=== PATIENT | male | born 1960 | race Caucasian/White ===

== ENCOUNTER 2017-06-27 21:08 | Emergency (ER) | payer OTHER ==
[~2017-06-27] VITALS: Ht 170.2 cm; Wt 134.0 kg
[~2017-06-27 21:08] MED LIST: LISI10TA PO; LORT7.5T3 PO; NOVO7030P2 SQ; TAMS0.4C67 PO
[2017-06-27 21:12] VITALS: BP 194/98; PULSE 73; RESP 24; TEMP 103; O2SAT 95
--- NOTE | 2017-06-27 21:52 | PD ---
Data Data Last Documented VS Vital Signs Date Time Temp Pulse Resp B/P Pulse Ox O2 Delivery O2 Flow Rate FiO2 06/27/17 22:30 94 Room Air 06/27/17 21:12 103.0 73 24 194/98 Orders Complete Blood Count With Diff (06/27/17 21:45) Comprehensive Metabolic Panel (06/27/17 21:45) Prothrombin Time / Inr (Pt) (06/27/17 21:45) Act Partial Throm Time (Ptt) (06/27/17 21:45) Blood Culture (06/27/17 21:45) Lipase (06/27/17 21:45) Urinalysis - C+S If Indicated (06/27/17 21:45) Magnesium (Mg) (06/27/17 21:45) Chest, Single Ap (06/27/17 21:45) Iv Access Insert/Monitor (06/27/17 21:45) Ecg Monitoring (06/27/17 21:45) Oximetry (06/27/17 21:45) Lactic Acid Sepsis Protocol (06/27/17 21:45) Ondansetron Inj (Zofran Inj) (06/27/17 22:00) B-Type Natriuretic Peptide (06/27/17 21:48) Us Leg Venous Doppler Bilat (06/27/17 ) Ondansetron Inj (Zofran Inj) (06/27/17 22:15) Morphine Inj (Morphine Inj) (06/27/17 22:15) Acetaminophen (Tylenol) (06/27/17 22:15) Ct Abd/Pel W/O Iv Contrast (06/27/17 ) Ankle, Complete ([id number]) (06/28/17 ) Vancomycin Inj (Vancomycin Inj) (06/28/17 00:45) Piperacil-Tazo 2.25 Gm Premix (Zosyn 2.2 (06/28/17 00:45) Influenzae A/B Antigen (06/28/17 00:44) Labs Laboratory Tests Test 06/27/17 06/27/17 22:20 22:55 White Blood Count 14.8 TH/MM3 Red Blood Count 3.51 MIL/MM3 Hemoglobin 10.7 GM/DL Hematocrit 32.2 % Mean Corpuscular Volume 91.7 FL Mean Corpuscular Hemoglobin 30.5 PG Mean Corpuscular Hemoglobin 33.3 % Concent Red Cell Distribution Width 13.4 % Platelet Count 63 TH/MM3 Mean Platelet Volume 9.9 FL Neutrophils (%) (Auto) 88.8 % Lymphocytes (%) (Auto) 4.4 % Monocytes (%) (Auto) 5.9 % Eosinophils (%) (Auto) 0.6 % Basophils (%) (Auto) 0.3 % Neutrophils # (Auto) 13.1 TH/MM3 Lymphocytes # (Auto) 0.6 TH/MM3 Monocytes # (Auto) 0.9 TH/MM3 Eosinophils # (Auto) 0.1 TH/MM3 Basophils # (Auto) 0.1 TH/MM3 CBC Comment AUTO DIFF Differential Comment AUTO DIFF CONFIRMED Platelet Estimate LOW Platelet Morphology Comment NORMAL Prothrombin Time 10.2 SEC Prothromb Time International 0.9 RATIO Ratio Activated Partial 22.7 SEC Thromboplast Time Sodium Level 138 MEQ/L Potassium Level 5.1 MEQ/L Chloride Level 108 MEQ/L Carbon Dioxide Level 21.0 MEQ/L Anion Gap 9 MEQ/L Blood Urea Nitrogen 42 MG/DL Creatinine 2.96 MG/DL Estimat Glomerular Filtration 22 ML/MIN Rate Random Glucose 121 MG/DL Lactic Acid Level 1.3 mmol/L Calcium Level 8.8 MG/DL Magnesium Level 1.9 MG/DL Total Bilirubin 0.6 MG/DL Aspartate Amino Transf 45 U/L (AST/SGOT) Alanine Aminotransferase 56 U/L (ALT/SGPT) Alkaline Phosphatase 190 U/L B-Type Natriuretic Peptide 150 PG/ML Total Protein 7.5 GM/DL Albumin 2.9 GM/DL Lipase 221 U/L Urine Color YELLOW Urine Turbidity CLEAR Urine pH 6.0 Urine Specific [place] 1.015 Urine Protein 300 mg/dL Urine Glucose (UA) 70 mg/dL Urine Ketones NEG mg/dL Urine Occult Blood TRACE Urine Nitrite NEG Urine Bilirubin NEG Urine Urobilinogen LESS THAN 2.0 MG/DL Urine Leukocyte Esterase NEG Urine RBC 3 /hpf Urine WBC 2 /hpf Urine Hyaline Casts 3 /lpf Urine Mucus FEW /lpf Microscopic Urinalysis Comment CULT NOT INDICATED MDM Supervised Visit with [facility]: Yes Narrative Course Patient care assumed for Benny Zafar PA-C at 2300. Is a 57-year-old male with history of CKD4 but is postponing dialysis as long as possible. The rhythms with fever, left ankle pain, some nausea without vomiting no cough congestion no diarrhea no constipation. The patient was given Tylenol and after fever broke he was feeling much better. Lactic acid normal. His white blood count is elevated to 14,000 but I see no source of bacterial infection in this patient. CAT scan of the abdomen was benign. Chest x-ray negative. Rapid flu negative. UA negative. On my reassessment the patient does have some edema in his legs which is fairly chronic. An ultrasound of his legs was negative. I think the probability for PE is low and certainly not worth the risk to jeopardize his kidney function. I discussed the patient that given his chronic kidney disease and obesity he does give me some pause cigars discharge however he is feeling much better and would like to go home to follow her [facility] care physician. Think this is reasonable at this time. Initial thought was given to broad-spectrum antibiotics but again I do not see a source of infection and do not see the utility of this. I discussed with the patient strict return to ED criteria and symptomatic management of his fever. Diagnosis Primary Impression: Fever Patient Instructions: Fever in Adults (ED), General Instructions Disposition: 01 DISCHARGE HOME Condition: Stable Edin Hsu MD Jun 27, 2017 21:52
[2017-06-27] MEDS ORDERED: ONDANSETRON HCL 4 MG/2 ML VIAL IV PUSH ONE ×2 (22:00→22:15)
--- NOTE | 2017-06-27 22:03 | PD ---
HPI Chief Complaint: GI Complaint Time Seen by Provider: 21:54 Travel History International Travel<30 days: No Contact w/Intl Traveler<30days: No Traveled to known affect area: No History of Present Illness HPI 57- year old male presents to the ED complaining of vomiting and left foot pain. The patient has a medical history of Stage 4 CKD, and Diabetes. The patient reports that the vomiting and the left foot pain started this morning. He reports the pain is mostly in his ankle. He reports that he had an US three weeks ago and was diagnosed with a kidney stone. He is complaining of RUQ and LUQ abdominal pain. 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 The patient is currently on metoprolol and hydralazine for his blood pressure. He reports he is not on any other medications due to his kidney disease. PFSH Past Medical History Diabetes: Yes Genitourinary: Yes Hypertension: Yes Kidney Stones: Yes Past Surgical History Cholecystectomy: Yes Social History Alcohol Use: Yes (QUIT) Tobacco Use: No Substance Use: No Allergies-Medications (Allergen,Severity, Reaction): Coded Allergies: Metformin (Verified Allergy, Severe, 04/18/12) PT STATES HE GOT LACTIC ACIDOSIS FROM TAKING METFORMIN Sulfa (Verified Allergy, Severe, Anaphylaxis, 04/18/12) Reported Meds & Prescriptions Reported Meds & Active Scripts Active Reported Hydralazine HCl 25 Mg Tablet 25 Mg PO TID Novolin 70-30 Inj (Insulin Human Isoph/Insulin Regular) 1,000 Unit/10 Ml Vial 1 Units SQ Metoprolol Tartrate 100 Mg Tab 100 Mg PO DAILY Review of Systems General / Constitutional: Positive: Fever, No: Chills, Weight Gain, Weight Loss, Other Eyes: No: Diploplia, Blurred Vision, Photophobia, Drainage, Redness, Foreign Body Sensation, Pain, Tearing, Blind Spots, Visual changes, Blindness, Other HENT: No: Headaches, Vertigo, Lightheadedness, Sore Throat, Rhinitis, Rhinorrhea, Congestion, Nosebleed, Neck Stiffness, Neck Pain, Masses, Gingival Bleeding, Dental Difficulties, Ear Discharge, Earache, Other Cardiovascular: No: Chest Pain or Discomfort, Palpitations, Irregular Rhythm, Tachycardia, Diaphoresis, Syncope, Dyspnea on exertion, Varicosities, Edema, Cyanosis, Varicosities, Phlebitis, Claudication, Other Respiratory: No: Cough, Shortness of Breath, Wheezing, Sneezing, Orthopnea, Hemoptysis, Stridor, Night Sweats, Pleuritic Pain, Other Gastrointestinal: Positive: Vomiting, Abdominal Pain (LUQ and RUQ), No: Nausea , Diarrhea, Hematemesis, Hematochezia, Constipation, Changes in Bowel Habits, Indigestion, Dysphagia, Loss of Appetite, Other Genitourinary: No: Urgency, Frequency, Dysuria, Nocturia, Hematuria, Decreased Urinary Output, Oliguria, Hesitancy, Dribbling, Incontinence, Pelvic Pain, Flank Pain, Dyspareunia, Discharge, Dysmenorrhea, Menorrhagia, Metorrhagia, Vaginal Bleeding, Other Musculoskeletal: Positive: Myalgias, Edema (bilateral lower extremities), Pain (left foot pain, worse in ankle), No: Arthralgias, Limited ROM, Weakness, Cramping, Atrophy, Other Skin: No Rash, No Itching, No Dryness, No Lumps, No Hives, No Change in Pigmentation, No Change in nails, No Alopecia, No Lesions, No Breast Lumps, No Breast Tenderness, No Breast Swelling, No Other Neurologic: No: Weakness, Dizziness, Syncope, Focal Abnormalities, Coordination Problem, Tremor, Ataxia, Headache, Change in Mentation, Slurred Speech, Paresthesia, Incontinence, Seizures, Sensory Disturbance, Other Psychiatric: No: Anxiety, Depression, Suicidal Ideations, Disorder of Thought, Mood Disorder, Substance Abuse, Homicidal Ideation, Other Endocrine: No: Heat Intolerance, Cold Intolerance, Polyuria, Polydipsia, Other Hematologic/Lymphatic: No: Easy Bruising, Lymph Node Enlargement, Other Physical Exam Narrative GENERAL: SKIN: Warm and dry. HEAD: Atraumatic. Normocephalic. EYES: Pupils equal and round. No scleral icterus. No injection or drainage. ENT: No nasal bleeding or discharge. Mucous membranes pink and moist. Tongue is midline, no uvula deviation. NECK: Trachea midline. No JVD. CARDIOVASCULAR: Regular rate and rhythm. No murmurs, S3, S4. RESPIRATORY: No accessory muscle use. Clear to auscultation. Breath sounds equal bilaterally. GASTROINTESTINAL: Mildy distended. Abdomen soft, non-tender. Hepatic and splenic margins not palpable. MUSCULOSKELETAL: Bilateral lower extremities with pitting 3+ pitting edema. Pain to palpation on left ankle. Limited ROM due to pain and swelling in lower extremities. No obvious deformities. NEUROLOGICAL: Awake and alert. No obvious cranial nerve deficits. Motor grossly within normal limits. Five out of 5 muscle strength in the arms and legs. Normal speech. PSYCHIATRIC: Appropriate mood and affect; insight and judgment normal. Data Data Last Documented VS Vital Signs Date Time Temp Pulse Resp B/P Pulse Ox O2 Delivery O2 Flow Rate FiO2 06/27/17 22:30 94 Room Air 06/27/17 21:12 103.0 73 24 194/98 Orders Complete Blood Count With Diff (06/27/17 21:45) Comprehensive Metabolic Panel (06/27/17 21:45) Prothrombin Time / Inr (Pt) (06/27/17 21:45) Act Partial Throm Time (Ptt) (06/27/17 21:45) Blood Culture (06/27/17 21:45) Lipase (06/27/17 21:45) Urinalysis - C+S If Indicated (06/27/17 21:45) Magnesium (Mg) (06/27/17 21:45) Chest, Single Ap (06/27/17 21:45) Iv Access Insert/Monitor (06/27/17 21:45) Ecg Monitoring (06/27/17 21:45) Oximetry (06/27/17 21:45) Lactic Acid Sepsis Protocol (06/27/17 21:45) Ondansetron Inj (Zofran Inj) (06/27/17 22:00) B-Type Natriuretic Peptide (06/27/17 21:48) Us Leg Venous Doppler Bilat (06/27/17 ) Ondansetron Inj (Zofran Inj) (06/27/17 22:15) Morphine Inj (Morphine Inj) (06/27/17 22:15) Acetaminophen (Tylenol) (06/27/17 22:15) Labs Laboratory Tests Test 06/27/17 22:20 White Blood Count 14.8 TH/MM3 Red Blood Count 3.51 MIL/MM3 Hemoglobin 10.7 GM/DL Hematocrit 32.2 % Mean Corpuscular Volume 91.7 FL Mean Corpuscular Hemoglobin 30.5 PG Mean Corpuscular Hemoglobin 33.3 % Concent Red Cell Distribution Width 13.4 % Platelet Count 63 TH/MM3 Mean Platelet Volume 9.9 FL Neutrophils (%) (Auto) 88.8 % Lymphocytes (%) (Auto) 4.4 % Monocytes (%) (Auto) 5.9 % Eosinophils (%) (Auto) 0.6 % Basophils (%) (Auto) 0.3 % Neutrophils # (Auto) 13.1 TH/MM3 Lymphocytes # (Auto) 0.6 TH/MM3 Monocytes # (Auto) 0.9 TH/MM3 Eosinophils # (Auto) 0.1 TH/MM3 Basophils # (Auto) 0.1 TH/MM3 CBC Comment AUTO DIFF Prothrombin Time 10.2 SEC Prothromb Time International 0.9 RATIO Ratio Activated Partial 22.7 SEC Thromboplast Time MDM Medical Decision Making Medical Screen Exam Complete: Yes Emergency Medical Condition: Yes Medical Record Reviewed: Yes Differential Diagnosis Sepsis versus gastroenteritis versus pancreatitis versus nausea and vomiting versus DVT versus cellulitis versus kidney failure Narrative Course 57-year-old male that presents to the ED for evaluation of fever, swelling and nausea and vomiting. Patient was properly examined and was found to have signs and symptoms of unclear etiology. Labs and imaging recommended. Case will be signed out to my attending Dr. Hsu pending dispo and treatment plan. Benny Zafar Jun 27, 2017 22:03
[2017-06-27] MEDS ORDERED: ACETAMINOPHEN 325 MG TAB PO ONE (22:15)
[2017-06-27] MEDS ORDERED: MORPHINE SULFATE 4 MG/ML INJ IV PUSH ONE (22:15)
[2017-06-27 22:30] VITALS: O2SAT 94
[2017-06-27] MEDS ORDERED: METO100T PO (22:36)
[2017-06-27] MEDS ORDERED: HYDR-3799 PO (22:36)
[2017-06-27] MEDS ORDERED: NOVO7030P2 SQ (22:36)
[2017-06-27 22:37] LABS: AUTOMATED NEUTROPHIL # 13.1 TH/MM3 (1.8-7.7); BASOPHIL # 0.1 TH/MM3 (0-0.2); BASOPHIL % 0.3 % (0.0-2.0); EOSINOPHIL # 0.1 TH/MM3 (0-0.4); EOSINOPHIL % 0.6 % (0.0-4.0); HEMATOCRIT 32.2 % (39.0-51.0); HEMO FLAGS AUTO DIFF; LYMPH % 4.4 % (9.0-44.0); LYMPHOCYTE # 0.6 TH/MM3 (1.0-4.8); MEAN CELL VOLUME 91.7 FL (80.0-100.0); MEAN CORPUSCULAR HEMOGLOBIN 30.5 PG (27.0-34.0); MEAN CORPUSCULAR HGB CONC 33.3 % (32.0-36.0); MONO % 5.9 % (0.0-8.0); NEUT % 88.8 % (16.0-70.0); PLATELET COUNT 63 TH/MM3 (150-450); RED BLOOD COUNT 3.51 MIL/MM3 (4.50-5.90); RED CELL DISTRIBUTION WIDTH 13.4 % (11.6-17.2); WHITE BLOOD COUNT 14.8 TH/MM3 (4.0-11.0)
--- NOTE | 2017-06-27 22:41 | RADRPT ---
EXAM DATE/TIME: 06/27/2017 21:47 [facility] COMPARISON: No previous studies available for comparison. INDICATIONS : Chest pain and fever. MEDICAL HISTORY : Hypertension. Diabetes mellitus type II. SURGICAL HISTORY : None. ENCOUNTER: Initial ACUITY: 1 day PAIN SCORE: 3/10 LOCATION: chest FINDINGS: A single view of the chest demonstrates the lungs to be symmetrically aerated without evidence of mas s, infiltrate or effusion. The cardiomediastinal contours are mildly prominent. Osseous structures a re intact. CONCLUSION: No acute disease. Pernell Gamble MD on June 27, 2017 at 22:39 Board Certified Radiologist. This report was verified electronically.
[2017-06-27 22:50] LABS: APTT (PATIENT) 22.7 SEC (24.3-30.1); INTERNATIONAL NORMALIZED RATIO 0.9 RATIO; PROTHROMBIN TIME - PATIENT 10.2 SEC (9.8-11.6)
[2017-06-27 23:06] LABS: ALKALINE PHOSPHATASE 190 U/L (45-117); TOTAL BILIRUBIN ADULT 0.6 MG/DL (0.2-1.0)
--- NOTE | 2017-06-27 23:06 | RADRPT ---
EXAM DATE/TIME: 06/27/2017 22:22 [facility] COMPARISON: No previous studies available for comparison. INDICATIONS : Bilateral leg swelling. MEDICAL HISTORY : Hypertension. Kidney stones. Diabetes. SURGICAL HISTORY : Cholecystectomy. ENCOUNTER: Initial ACUITY: 1 month PAIN SCORE: 3/10 LOCATION: Bilateral legs. TECHNIQUE: Venous ultrasound of the left and right leg was performed from the inguinal ligament to the proximal calf. Real-time, color Doppler and spectral tracing, compression and augmentation techniques were us ed. FINDINGS: RIGHT LEG: There is normal compressibility of the deep venous system from the inguinal region to the proximal ca lf. No echogenic clot is seen in the lumen of the common femoral, femoral, popliteal, and posterior tibial veins. There is a normal response of the venous system to proximal and distal augmentation an d respiration. LEFT LEG: There is normal compressibility of the deep venous system from the inguinal region to the proximal ca lf. No echogenic clot is seen in the lumen of the common femoral, femoral, popliteal, and posterior tibial veins. There is a normal response of the venous system to proximal and distal augmentation an d respiration. CONCLUSION: No DVT in either lower extremity. Sergei Pereira MD on June 27, 2017 at 23:04 Board Certified Radiologist. This report was verified electronically.
[2017-06-27 23:08] LABS: ALT (GPT) 56 U/L (12-78); ANION GAP 9 MEQ/L (5-15); AST (GOT) 45 U/L (15-37); BLOOD UREA NITROGEN 42 MG/DL (7-18); CHLORIDE 108 MEQ/L (98-107); GLOMERULAR FILTRATION RATE 22 ML/MIN (>89); MAGNESIUM 1.9 MG/DL (1.5-2.5); SODIUM (NA) 138 MEQ/L (136-145)
[2017-06-27 23:12] LABS: POTASSIUM 5.1 MEQ/L (3.5-5.1)
[2017-06-27 23:22] LABS: PLATELET ESTIMATE SMEAR LOW (NORMAL); PLATELET MORPHOLOGY NORMAL (NORMAL); SCAN/DIFF AUTO DIFF CONFIRMED
[2017-06-27 23:51] LABS: BLOOD, URINE TRACE (NEG); COMMENT (UR) CULT NOT INDICATED; CULTURE IF INDICATED CULT NOT INDICATED; GLUCOSE,URINE 70 mg/dL (NEG); HYALINE CAST, URINE 3 /lpf (RARE); KETONE, URINE NEG (NEG); MUCUS URINE FEW /lpf (OCC); NITRITE,URINE NEG (NEG); URINE COLOR YELLOW (YELLW/STRAW)
--- NOTE | 2017-06-28 00:24 | RADRPT ---
EXAM DATE/TIME: 06/27/2017 23:18 [facility] COMPARISON: No previous studies available for comparison. INDICATIONS : Abdominal pain. ORAL CONTRAST: No oral contrast ingested. RADIATION DOSE: 15.73 CTDIvol (mGy) MEDICAL HISTORY : Hypertension. Renal calculi. Diabetes mellitus type 2. SURGICAL HISTORY : Cholecystectomy. ENCOUNTER: Initial ACUITY: 1 day PAIN SCALE: 5/10 LOCATION: abdomen TECHNIQUE: Volumetric scanning of the abdomen and pelvis was performed. Using automated exposure control and ad justment of the mA and/or kV according to patient size, radiation dose was kept as low as reasonably achievable to obtain optimal diagnostic quality images. DICOM format image data is available electro nically for review and comparison. FINDINGS: LOWER LUNGS: The visualized lower lungs are clear. Tiny pleural effusions. LIVER: Nodular contour without lesion. There is no dilation of the biliary tree. Cholecystectomy clips. SPLEEN: Normal size without lesion. PANCREAS: Within normal limits. KIDNEYS: Normal in size and shape. There is no mass or hydronephrosis. 9 mm nonobstructing left renal calculu s. Vascular calcifications are seen bilaterally. ADRENAL GLANDS: Within normal limits. VASCULAR: There is no aortic aneurysm. BOWEL/MESENTERY: The stomach, small bowel, and colon demonstrate no acute abnormality. There is no free intraperitone al air or fluid. Scattered diverticulosis. ABDOMINAL WALL: Small fat-containing umbilical hernia.. RETROPERITONEUM: There is no lymphadenopathy. BLADDER: No wall thickening or mass. REPRODUCTIVE: Within normal limits. INGUINAL: There is no lymphadenopathy or hernia. MUSCULOSKELETAL: Within normal limits for patient age. CONCLUSION: 1. Cirrhotic liver. 2. Status post cholecystectomy. 3. Nonobstructing left renal calculus measures 9 mm. 4. Diverticulosis without diverticulitis. 5. Tiny bilateral pleural effusions. Sergei Pereira MD on June 28, 2017 at 0:19 Board Certified Radiologist. This report was verified electronically.
[2017-06-28] MEDS ORDERED: PIPERACIL-TAZO 2.25 GM PREMIX 50 ML IV ONE (00:45)
[2017-06-28] MEDS ORDERED: VANCOMYCIN INJ 1,000 MG in SODIUM CHLOR 0.9% 250 ML INJ 250 ML IV ONE (00:45)
--- NOTE | 2017-06-28 01:07 | RADRPT ---
EXAM DATE/TIME: 06/28/2017 00:46 [facility] COMPARISON: No previous studies available for comparison. INDICATIONS : No known injury- Pain and swelling to left ankle today. Unable to bear weight. MEDICAL HISTORY : Diabetes mellitus type II. Hypertension SURGICAL HISTORY : None. ENCOUNTER: Initial ACUITY: 1 day PAIN SCORE: 9/10 LOCATION: Left Ankle FINDINGS: Three view exam was performed of the left ankle. The bony structures are in normal alignment. No ev idence of fracture, dislocation. There is soft tissue swelling. The ankle mortise is intact. No rad iopaque foreign bodies are seen. Bony mineralization is normal. Vascular calcifications. CONCLUSION: Soft tissue swelling without fracture. Sergei Pereira MD on June 28, 2017 at 1:05 Board Certified Radiologist. This report was verified electronically.
== END 2017-06-28 02:09 | disposition home or self-care (01) ==
LOC: NEPE 21:08
DX: R50.9 Fever, unspecified (principal); R11.2 Nausea with vomiting, unspecified; M79.672 Pain in left foot; R10.11 Right upper quadrant pain; R10.12 Left upper quadrant pain; E11.22 Type 2 diabetes mellitus with diabetic chronic kidney disease; N18.4 Chronic kidney disease, stage 4 (severe); I12.9 Hypertensive chronic kidney disease with stage 1 through stage 4 chronic kidney disease, or unspecified chronic kidney disease; Z79.4 Long term (current) use of insulin
CPT/HCPCS: 71010; 73610; 74176; 80053; 81001; 83605; 83690; 83735; 83880; 85025; 85610; 85730; 87040; 87804; 93970; 96374; 99285; J2270; J2405